=== PATIENT | male | born 1990 | race Caucasian/White ===

== ENCOUNTER → 2023-01-20 | Outpatient (REF) | payer BC ==
[2023-01-22 09:08] LABS: LDL DIRECT 77 mg/dL (0-99)
== END ==
LOC: M LAB REF 16:56
PROVIDERS: ATTEND Internal Medicine
DX: E78.5 Hyperlipidemia, unspecified (principal)

== ENCOUNTER → 2023-02-08 | Outpatient (CLI) | payer BC ==
[~2023-02-08] MED LIST: ISOVUE-370 76% 100ML VIAL ONE
== END ==
LOC: M PLAIMG 08:03
PROVIDERS: ATTEND Internal Medicine
DX: R59.1 Generalized enlarged lymph nodes (principal)

== ENCOUNTER → 2023-09-07 | Outpatient (REF) | payer BC | LOC: M LAB REF 16:29 | PROVIDERS: ATTEND Internal Medicine | DX: E78.5 Hyperlipidemia, unspecified (principal) ==

== ENCOUNTER → 2024-11-28 | Outpatient (CLI) | payer BC | LOC: M RAD 15:40 | PROVIDERS: ATTEND Otolaryngology | DX: J32.8 Other chronic sinusitis (principal) ==

== ENCOUNTER 2025-02-04 08:45 | Day surgery (SDC) | payer BC ==
[~2025-02-04] VITALS: Ht 175.3 cm; Wt 99.3 kg
[2025-02-04] MEDS: LR 1,000 ML IV SCH (09:55)
[2025-02-04] MEDS ORDERED: MIDAZOLAM INJ 2 MG/2 ML VIAL As Ordered ONE (10:22)
[2025-02-04] MEDS ORDERED: LIDOCAINE 2% 100 MG/5 ML SDV (FOR ANES.) As Ordered ONE (10:22)
[2025-02-04] MEDS ORDERED: ONDANSETRON 4MG/2ML VIAL As Ordered ONE (10:22)
[2025-02-04] MEDS ORDERED: dexAMETHasone 4 MG/ML 1 ML VIAL As Ordered ONE (10:22)
[2025-02-04] MEDS ORDERED: ROCURONIUM BROMIDE 50MG/5ML VIAL As Ordered ONE (10:22)
[2025-02-04] MEDS ORDERED: SUGAMMADEX SODIUM 500 MG/5 ML VIAL As Ordered ONE (10:22)
[2025-02-04] MEDS ORDERED: ACETAMINOPHEN 1000MG/100ML IV BAG As Ordered ONE (10:23)
[2025-02-04] MEDS: LIDOCAINE W/EPINEPHrine 1% 20 ML VIAL As Ordered ONE (11:07)
[2025-02-04] MEDS ORDERED: dexmedeTOMIDine (4 MCG/ML) 200 MCG/50 ML BTL As Ordered ONE (11:25)
[2025-02-04] MEDS: COCAINE 4% 4 ML NASAL SOLUTION BTL As Ordered ONE (11:50)
[2025-02-04] MEDS: OXYMETAZOLINE 0.05% NASAL SPRAY As Ordered ONE (11:55)
[2025-02-04] MEDS ORDERED: HYDROMORPHONE HCL 0.5 MG/0.5 ML SYRINGE IV PRN (12:35)
[2025-02-04] MEDS ORDERED: MORPHINE 2 MG/ML 1 ML VIAL IV PRN (12:35)
[2025-02-04] MEDS: ONDANSETRON 4MG/2ML VIAL IV PRN (12:53)
[2025-02-04 13:35] VITALS: BP 137/91; TEMP 97.8; O2SAT 98
== END 2025-02-04 14:16 | disposition home or self-care (01) ==
LOC: M SDC 08:45
PROVIDERS: ATTEND Otolaryngology
DX: J32.2 Chronic ethmoidal sinusitis (principal); J32.0 Chronic maxillary sinusitis
CPT/HCPCS: 31254; 31267; 88305; C9143; J0131; J1100; J2250; J2405; J3010